=== PATIENT | female | born 1960 | race African-American/Black ===

== ENCOUNTER 2019-09-24 03:37 | Emergency (ER) | payer SELFPAY ==
[~2019-09-24] VITALS: Ht 165.1 cm; Wt 72.6 kg
[2019-09-24] MEDS ORDERED: TETANUS, DIPHTHERIA, PERTUSSIS VAC/PF 0.5ML (>7YR OLD) IM ONE (04:30)
[2019-09-24 08:17] VITALS: BP 122/75
== END 2019-09-24 08:22 | disposition home or self-care (01) ==
LOC: ER 03:37
DX: S00.83XA Contusion of other part of head, initial encounter (principal); Y08.89XA Assault by other specified means, initial encounter; Y93.89 Activity, other specified; Y92.89 Other specified places as the place of occurrence of the external cause; Y99.8 Other external cause status; Z98.890 Other specified postprocedural states; Z85.9 Personal history of malignant neoplasm, unspecified
CPT/HCPCS: 90471; 90715; 99284

== ENCOUNTER 2023-09-05 10:46 | Emergency (ER) | payer SELFPAY ==
[~2023-09-05] VITALS: Ht 160 cm; Wt 80.0 kg
[2023-09-05 10:55] VITALS: BP 175/93; PULSE 101; RESP 16; TEMP 98.6; O2SAT 100
== END 2023-09-05 13:17 | disposition left against medical advice (07) ==
LOC: ER 10:46
DX: R51.9 Headache, unspecified (principal); Z53.21 Procedure and treatment not carried out due to patient leaving prior to being seen by health care provider
CPT/HCPCS: 73120; 99281; Z7610; 99283

== ENCOUNTER 2023-12-24 00:40 | Inpatient (IN) | payer BC ==
[2023-12-24] VITALS (57 sets, daily range): BP systolic 87–164; BP diastolic 43–115; PULSE 77–135; RESP 11–34; TEMP 97.4–98.5
[~2023-12-24] VITALS: Ht 162.6 cm; Wt 86.2 kg
[2023-12-24] MEDS ORDERED: VANCOMYCIN 1000MG/250ML 250 ML IV SCH (01:15)
[2023-12-24] MEDS ORDERED: FENTANYL 2500MCG/250ML PMX 250 ML IV ONE ×2 (01:30→11:00)
[2023-12-24] MEDS ORDERED: FENTANYL CITRATE 2,500 MCG in SODIUM CHLORIDE 0.9% 200 ML IV PRN (01:30)
[2023-12-24 01:33] LABS: HEMATOCRIT. 53.6 % (36.0-48.0); MEAN CORPUSCULAR HEMOGLOBIN 28.9 pg (28.0-32.0); MEAN CORPUSCULAR HGB CONC 29.8 g/dL (31.0-37.0); MEAN CORPUSCULAR VOLUME 96.9 fL (81.0-99.0); MEAN PLATELET VOLUME 10.2 fl (7.4-10.4); PLATELET 360 x1000/uL (130-400); RED BLOOD CELL COUNT 5.54 mill/uL (4.2-5.4); RED CELL DISTRIBUTION WIDTH 15.2 % (11.6-14.6); WHITE BLOOD COUNT 20.2 x1000/uL (4.5-11.0)
[2023-12-24 01:35] LABS: DIFFERENTIAL COMMENT 1
[2023-12-24 01:42] LABS: CHLORIDE 102 mEq/L (98-107); POTASSIUM 3.7 mEq/L (3.5-5.1); SODIUM 142 mEq/L (136-145)
[2023-12-24 01:43] LABS: CARBON DIOXIDE 16 mEq/L (21-32)
[2023-12-24 01:48] LABS: CREATININE 1.3 mg/dL (0.6-1.0); GLUCOSE 183 mg/dL (70-105); UREA NITROGEN BLOOD 10 mg/dL (9-23)
[2023-12-24 01:50] LABS: ALANINE AMINOTRANSFERASE 72 IU/L (10-49); ALBUMIN 4.9 g/dL (3.2-4.8); ASPARTATE AMINOTRANSFERASE 70 IU/L (<34); BILIRUBIN TOTAL 0.3 mg/dL (0.1-1.0); PROTEIN TOTAL 8.9 g/dL (6.0-8.3); TROPONIN I HIGH SENSITIVITY 24 ng/L (3.0-34)
[2023-12-24 01:51] LABS: ATYPICAL LYMPHOCYTES 19; PLATELET ESTIMATE NORMAL
[2023-12-24 01:52] LABS: OVALOCYTES 1+; TEAR DROP CELLS 2+
[2023-12-24 01:53] LABS: GIANT PLATELETS FEW
[2023-12-24] MEDS: PROPOFOL 10MG/ML 100ML 100 ML IV STA (01:53)
[2023-12-24] MEDS: FENTANYL 2500MCG/250ML PMX 250 ML IV ONE (01:54)
[2023-12-24] MEDS: PIPERACILLIN/TAZO 3.375G/50ML 50 ML IV NR (02:26)
[2023-12-24 02:35] LABS: BG CARBOXYHEMOGLOBIN 0.3 % (0.5-1.5); BG FRACTION INSPIRED OXYGEN 100; BG HCO3 ACT 19.2 mmol/L (22.0-26.0); BG METHEMOGLOBIN 0.3 % (0.0-1.5); BG OXYHEMOGLOBIN 96.4 % (94.0-97.0); BG PCO2 50.6 mmHg (35.0-45.0); BG PH 7.198 (7.350-7.450); BG PO2 112.7 mmHg (75.0-100.0); BG SAMPLE SITE RIGHT RADIAL; BG TOTAL HEMOGLOBIN 15.1 g/dL (12.0-18.0); BG VENT MODE VENT - AC
[2023-12-24 02:44] LABS: LACTIC ACID 23.6 mmol/L (0.4-2.0)
[2023-12-24] MEDS: VANCOMYCIN 1G PREMIX 200 ML IV NR (02:53)
[2023-12-24] MEDS ORDERED: PIPERACILLIN/TAZO 3.375G/50ML 50 ML IV SCH (06:00)
[2023-12-24] MEDS ORDERED: DOCUSATE SODIUM 100MG CAPSULE PO PRN (06:00)
[2023-12-24] MEDS ORDERED: MAGNESIUM/ALUMINUM HYDROXIDE/SIMETHICONE 30ML UDC PO PRN (06:00)
[2023-12-24] MEDS ORDERED: PIPERACILLIN/TAZOBACTAM 3.375 G in DEXTROSE 5% WATER 50 ML IV SCH (06:00)
[2023-12-24] MEDS ORDERED: CLONIDINE 0.1MG TABLET PO PRN (06:00)
[2023-12-24] MEDS ORDERED: IPRATROPIUM/ALBUTEROL 0.5-3(2.5)MG/3ML NEB HHN PRN ×2 (06:00)
[2023-12-24] MEDS ORDERED: GUAIFENESIN 200MG/10ML SUGAR FREE UDC PO PRN (06:00)
[2023-12-24] MEDS ORDERED: PROPOFOL 10MG/ML 100ML 100 ML IV PRN (06:15)
[2023-12-24] MEDS ORDERED: DEXTROSE 50% WATER 50ML SYRINGE IV PRN (06:15)
[2023-12-24] MEDS: METHYLPREDNISOLONE SOD SUCC 125MG/2ML (ACT-O-VIAL) IV SCH (06:46)
[2023-12-24] MEDS: PIPERACILLIN/TAZO 3.375G/50ML IV SCH (06:46)
[2023-12-24] MEDS: DEXT 5%/0.9% NACL 1,000 ML IV SCH (07:00)
[2023-12-24] MEDS ORDERED: DOXYCYCLINE 100MG/100ML 100 ML IV SCH (07:00)
[2023-12-24 08:03] LABS: BG BASE EXCESS -0.7 mmol/L (-2.0-2.0); BG CARBOXYHEMOGLOBIN 0.1 % (0.5-1.5); BG DEOXYHEMOGLOBIN 0.9 % (0.0-5.0); BG FRACTION INSPIRED OXYGEN 100; BG HCO3 ACT 25.5 mmol/L (22.0-26.0); BG METHEMOGLOBIN 0.4 % (0.0-1.5); BG OXYGEN SATURATION 99.1 % (92.0-98.5); BG OXYHEMOGLOBIN 98.6 % (94.0-97.0); BG PCO2 47.4 mmHg (35.0-45.0); BG PH 7.348 (7.350-7.450); BG PO2 185.3 mmHg (75.0-100.0); BG SAMPLE SITE RIGHT RADIAL; BG TOTAL HEMOGLOBIN 15.2 g/dL (12.0-18.0); BG VENT MODE VENT - AC
[2023-12-24] MEDS: IPRATROPIUM/ALBUTEROL 0.5-3(2.5)MG/3ML NEB HHN SCH (08:05)
[2023-12-24] MEDS: ONDANSETRON HCL 4MG/2ML INJ IV NR (10:30)
[2023-12-24] MEDS: BLOOD SUGAR DIAGNOSTIC STRIP TEST SCH (10:46)
[2023-12-24] MEDS: INSULIN LISPRO 100 UNITS/ML SUBCUT SCH (10:50)
[2023-12-24] MEDS ORDERED: MIDAZOLAM HCL 100 MG in SODIUM CHLORIDE 0.9% 80 ML IV PRN (11:00)
[2023-12-24 11:34] LABS: INR 1.2; PARTIAL THROMBOPLASTIN TIME 25.9 sec (23.4-31.0); PROTHROMBIN TIME 12.7 sec (9.6-11.0)
[2023-12-24 11:51] LABS: CREATINE KINASE MB FRACTION 10.7 ng/mL (0.5-3.6)
[2023-12-24 11:52] LABS: LDL CHOLESTEROL 57 mg/dL (5-100); TRIGLYCERIDE 119 mg/dL (0-150)
[2023-12-24 11:53] LABS: CREATINE KINASE 521 IU/L (34-145); HDL CHOLESTEROL 52 mg/dL (>65)
[2023-12-24 11:54] LABS: CHOLESTEROL 126 mg/dL (<200); PHOSPHORUS 3.7 mg/dL (2.5-4.9); TROPONIN I HIGH SENSITIVITY 412 ng/L (3.0-34)
[2023-12-24 11:56] LABS: THYROID STIMULATING HORMONE 0.74 uIU/mL (0.55-4.78)
[2023-12-24 12:14] LABS: HEPATITIS B SURFACE ANTIGEN NEGATIVE (Negative)
[2023-12-24 12:29] LABS: BG BASE EXCESS -0.3 mmol/L (-2.0-2.0); BG CARBOXYHEMOGLOBIN 0.2 % (0.5-1.5); BG DEOXYHEMOGLOBIN 3.7 % (0.0-5.0); BG FRACTION INSPIRED OXYGEN 40; BG HCO3 ACT 24.8 mmol/L (22.0-26.0); BG METHEMOGLOBIN 0.3 % (0.0-1.5); BG OXYGEN SATURATION 96.3 % (92.0-98.5); BG OXYHEMOGLOBIN 95.8 % (94.0-97.0); BG PCO2 42.3 mmHg (35.0-45.0); BG PH 7.386 (7.350-7.450); BG PO2 87.7 mmHg (75.0-100.0); BG SAMPLE SITE LEFT RADIAL; BG TOTAL HEMOGLOBIN 14.6 g/dL (12.0-18.0); BG VENT MODE VENT - CPAP
[2023-12-24 12:34] LABS: HEPATITIS A AB IGM NEGATIVE (Negative)
[2023-12-24 12:35] LABS: HEPATITIS B CORE AB IGM NEGATIVE (Negative); HEPATITIS C AB REACTIVE (Pos) (Negative)
[2023-12-24] MEDS: NITROGLYCERIN OINT 1GM/INCH UDPKT TD SCH (14:00)
[2023-12-24] MEDS: ACETYLCYSTEINE 200MG/ML 20% VIAL 4ML INH SCH (14:00)
[2023-12-24] MEDS: DOXYCYCLINE 100MG/100ML 100 ML IV SCH (14:12)
[2023-12-24] MEDS: MAGNESIUM 2 G PREMIX 50 ML IV NR (14:13)
[2023-12-24] MEDS: PANTOPRAZOLE SODIUM 40 MG/VIAL IV SCH (14:13)
[2023-12-24] MEDS: MAGNESIUM OXIDE 400MG TABLET PO SCH (14:14)
[2023-12-24 15:12] LABS: CREATINE KINASE MB FRACTION 11.8 ng/mL (0.5-3.6)
[2023-12-24] MEDS ORDERED: IPRATROPIUM BROMIDE (0.02%) 0.5MG/2.5ML NEB HHN PRN (17:15)
[2023-12-24] MEDS: ENOXAPARIN 80MG/0.8ML SYR SUBCUT SCH (17:58)
[2023-12-24] MEDS: LIDOCAINE HCL/EPINEPHRINE 1%-EPI 1:100,000 20 ML VIAL INFIL NR (20:10)
[2023-12-24] MEDS: IPRATROPIUM BROMIDE (0.02%) 0.5MG/2.5ML NEB HHN SCH (20:29)
[2023-12-24] MEDS: AMLODIPINE 2.5MG TABLET PO SCH (21:00)
[2023-12-25] VITALS (60 sets, daily range): BP systolic 91–147; BP diastolic 43–87; PULSE 71–101; RESP 10–27; TEMP 96.3–98.7
[2023-12-25] MEDS: ACETAMINOPHEN 650MG/20.3ML UDC NG PRN (02:42)
[2023-12-25] MEDS ORDERED: VANCOMYCIN 1G PREMIX 200 ML IV SCH (04:00)
[2023-12-25] MEDS: VANCOMYCIN 1G PREMIX 200 ML IV SCH (06:06)
[2023-12-25] MEDS: PNEUMOCOCCAL 23-VAL P-SAC VAC 0.5 ML IM ONE (06:08)
[2023-12-25 06:48] LABS: CLARITY URINE CLEAR (CLEAR); COLOR URINE YELLOW (YELLOW); GLUCOSE URINE NEGATIVE (NEGATIVE); KETONES URINE NEGATIVE (NEGATIVE); LEUKOCYTE ESTERASE URINE NEGATIVE (NEGATIVE); NITRITE URINE NEGATIVE (NEGATIVE); OCCULT BLOOD URINE NEGATIVE (NEGATIVE); PROTEIN URINE NEGATIVE (NEGATIVE); SPECIFIC GRAVITY URINE 1.022 (1.005-1.030)
[2023-12-25 06:53] LABS: CHLORIDE 109 mEq/L (98-107); POTASSIUM 3.8 mEq/L (3.5-5.1); SODIUM 141 mEq/L (136-145)
[2023-12-25 07:00] LABS: CALCIUM 8.5 mg/dL (8.7-10.4)
[2023-12-25 07:01] LABS: CARBON DIOXIDE 24 mEq/L (21-32)
[2023-12-25 07:07] LABS: T4 FREE 0.87 ng/dL (0.89-1.76)
[2023-12-25 07:08] LABS: CREATININE 0.7 mg/dL (0.6-1.0); GLUCOSE 162 mg/dL (70-105); UREA NITROGEN BLOOD 10 mg/dL (9-23)
[2023-12-25 07:11] LABS: CREATININE URINE RANDOM 94.8 mg/dL
[2023-12-25 07:14] LABS: *AMPHETAMINES SCREEN URINE NEGATIVE (NEGATIVE); *BARBITURATES SCREEN URINE NEGATIVE (NEGATIVE); *BENZODIAZEPINES SCREEN URINE NEGATIVE (NEGATIVE); *COCAINE SCREEN URINE NEGATIVE (NEGATIVE); METHADONE URINE SCREEN NEGATIVE (NEGATIVE)
[2023-12-25 07:15] LABS: CANNABINOID URINE SCREEN NEGATIVE (NEGATIVE); ECSTASY MDMA SCREEN URINE NEGATIVE (NEGATIVE); OPIATES URINE SCREEN NEGATIVE (NEGATIVE); PHENCYCLIDINE URINE SCREEN NEGATIVE (NEGATIVE)
[2023-12-25 08:04] LABS: TROPONIN I HIGH SENSITIVITY 98 ng/L (3.0-34)
[2023-12-25 12:24] LABS: HEMATOCRIT. 34.1 % (36.0-48.0); HEMOGLOBIN. 11.3 g/dL (12.0-16.0); LYMPHOCYTES % 13.3 % (20.0-50.0); MEAN CORPUSCULAR HEMOGLOBIN 28.3 pg (28.0-32.0); MEAN CORPUSCULAR HGB CONC 33.1 g/dL (31.0-37.0); MEAN PLATELET VOLUME 8.7 fl (7.4-10.4); MONOCYTES % 3.6 % (2.0-8.0); NEUTROPHILS % 83.1 % (40.0-76.0); PLATELET 208 x1000/uL (130-400); RED BLOOD CELL COUNT 3.99 mill/uL (4.2-5.4); RED CELL DISTRIBUTION WIDTH 13.6 % (11.6-14.6); WHITE BLOOD COUNT 17.6 x1000/uL (4.5-11.0)
[2023-12-25 12:27] LABS: MEAN CORPUSCULAR VOLUME 85.6 fL (81.0-99.0)
[2023-12-26] VITALS (10 sets, daily range): BP systolic 138–151; BP diastolic 70–81; PULSE 72–96; RESP 12–22; TEMP 97.8–98.7; O2SAT 99
[2023-12-26 07:18] LABS: HEMATOCRIT. 34.7 % (36.0-48.0); HEMOGLOBIN. 11.4 g/dL (12.0-16.0); LYMPHOCYTES % 12.5 % (20.0-50.0); MEAN CORPUSCULAR HEMOGLOBIN 28.3 pg (28.0-32.0); MEAN CORPUSCULAR HGB CONC 32.9 g/dL (31.0-37.0); MEAN PLATELET VOLUME 9.5 fl (7.4-10.4); NEUTROPHILS % 83.5 % (40.0-76.0); PLATELET 212 x1000/uL (130-400); RED BLOOD CELL COUNT 4.03 mill/uL (4.2-5.4); RED CELL DISTRIBUTION WIDTH 13.7 % (11.6-14.6); WHITE BLOOD COUNT 18.2 x1000/uL (4.5-11.0)
[2023-12-26 07:19] LABS: CARBON DIOXIDE 25 mEq/L (21-32); CHLORIDE 108 mEq/L (98-107); SODIUM 139 mEq/L (136-145)
[2023-12-26 07:24] LABS: CREATININE 0.8 mg/dL (0.6-1.0)
[2023-12-26 07:25] LABS: GLUCOSE 147 mg/dL (70-105); UREA NITROGEN BLOOD 13 mg/dL (9-23)
[2023-12-26] MEDS: VANCOMYCIN 1G PREMIX 200 ML IV SCH (13:15)
[2023-12-26 15:06] LABS: A/G RATIO 0.9 (0.7-1.7); ALBUMIN 3.1 g/dL (2.9-4.4); ALPHA-1-GLOBULIN 0.3 g/dL (0.0-0.4); ALPHA-2-GLOBULIN 0.8 g/dL (0.4-1.0); GAMMA GLOBULINS 1.6 g/dL (0.4-1.8); GLOBULIN TOTAL 3.6 g/dL (2.2-3.9); M-SPIKE Not Observed g/dL (Not Observed); TOTAL PROTEIN SERUM 6.7 g/dL (6.0-8.5)
[2023-12-26] MEDS: METHYLPREDNISOLONE SOD SUCC 125MG/2ML (ACT-O-VIAL) IV SCH (18:29)
[2023-12-26] MEDS: VANCOMYCIN 750MG PREMIX 150 ML IV SCH (23:02)
[2023-12-27] VITALS (9 sets, daily range): BP systolic 132–159; BP diastolic 72–115; PULSE 69–85; RESP 14–20; TEMP 97.8–98; O2SAT 99
[2023-12-27 07:34] LABS: HEMATOCRIT. 31.4 % (36.0-48.0); HEMOGLOBIN. 10.6 g/dL (12.0-16.0); LYMPHOCYTES % 15.4 % (20.0-50.0); MEAN CORPUSCULAR HEMOGLOBIN 28.5 pg (28.0-32.0); MEAN CORPUSCULAR HGB CONC 33.6 g/dL (31.0-37.0); MEAN CORPUSCULAR VOLUME 84.9 fL (81.0-99.0); MEAN PLATELET VOLUME 9.5 fl (7.4-10.4); MONOCYTES % 4.9 % (2.0-8.0); NEUTROPHILS % 79.7 % (40.0-76.0); PLATELET 191 x1000/uL (130-400); RED CELL DISTRIBUTION WIDTH 13.5 % (11.6-14.6); WHITE BLOOD COUNT 12.6 x1000/uL (4.5-11.0)
[2023-12-27 07:51] LABS: CALCIUM 8.7 mg/dL (8.7-10.4); CHLORIDE 107 mEq/L (98-107); POTASSIUM 3.6 mEq/L (3.5-5.1); SODIUM 140 mEq/L (136-145)
[2023-12-27 07:52] LABS: CARBON DIOXIDE 26 mEq/L (21-32)
[2023-12-27 07:57] LABS: CREATININE 0.8 mg/dL (0.6-1.0); GLUCOSE 136 mg/dL (70-105); UREA NITROGEN BLOOD 15 mg/dL (9-23)
[2023-12-27] MEDS: FAMOTIDINE 20MG/2ML VIAL IV SCH (08:57)
[2023-12-27] MEDS: FUROSEMIDE 40MG TABLET PO SCH (09:19)
[2023-12-27] MEDS: POTASSIUM CHLORIDE 20MEQ TABLET SR PO SCH (09:19)
[2023-12-27] MEDS: CARVEDILOL 3.125 MG TABLET PO SCH (09:27)
[2023-12-27] MEDS ORDERED: GUAIFENESIN 600MG ER TABLET PO PRN (10:15)
[2023-12-27] MEDS ORDERED: VANCOMYCIN 1G PREMIX 200 ML IV SCH (18:00)
[2023-12-27] MEDS ORDERED: VANCOMYCIN 1GM PMX (XELLIA) 200 ML IV SCH (18:00)
== END 2023-12-27 18:02 | disposition home or self-care (01) | DRG 871 ==
LOC: ER 00:43 → CVICU 04:21 → 3WST 12-25 23:03
PROVIDERS: ADMIT Hospitalist; ATTEND Hospitalist
PROC: 5A1935Z Respiratory Ventilation, Less than 24 Consecutive Hours (ICD-10-PCS; principal; 2023-12-24)
PROC: 0BH17EZ Insertion of Endotracheal Airway into Trachea, Via Natural or Artificial Opening (ICD-10-PCS; 2023-12-24)
DX: A41.9 Sepsis, unspecified organism (principal); G92.8 Other toxic encephalopathy; J69.0 Pneumonitis due to inhalation of food and vomit; J96.01 Acute respiratory failure with hypoxia; J96.02 Acute respiratory failure with hypercapnia; R65.21 Severe sepsis with septic shock; I21.A1 Myocardial infarction type 2; N17.9 Acute kidney failure, unspecified; I42.9 Cardiomyopathy, unspecified; J42 Unspecified chronic bronchitis; B18.2 Chronic viral hepatitis C; N18.9 Chronic kidney disease, unspecified; I12.9 Hypertensive chronic kidney disease with stage 1 through stage 4 chronic kidney disease, or unspecified chronic kidney disease; I34.1 Nonrheumatic mitral (valve) prolapse; E83.52 Hypercalcemia; B96.89 Other specified bacterial agents as the cause of diseases classified elsewhere; E87.70 Fluid overload, unspecified; R73.9 Hyperglycemia, unspecified; K59.00 Constipation, unspecified; I44.7 Left bundle-branch block, unspecified; Z79.899 Other long term (current) drug therapy; Z51.5 Encounter for palliative care; Z85.3 Personal history of malignant neoplasm of breast; Z90.13 Acquired absence of bilateral breasts and nipples
CPT/HCPCS: 36415; 36600; 71045; 80048; 80053; 80061; 80202; 80305; 81003; 82340; 82375; 82550; 82553; 82570; 82805; 82962; 83036; 83605; 83735; 83880; 84100; 84145; 84155; 84156; 84165; 84439; 84443; 84484; 85025; 85379; 86705; 86709; 87070; 87077; 87186; 87340; 90732; 93005; 93306; 93970; 94003; 94640; 99291; C1893; C9113; J1650; J1815; J2405; J2543; J2704; J2930; J3010; J3370; J3475; J3490; J7608

== ENCOUNTER 2024-03-02 02:56 | Inpatient (IN) | payer BC, OTHER ==
[~2024-03-02] VITALS: Ht 165.1 cm; Wt 81.6 kg
[2024-03-02] VITALS (67 sets, daily range): BP systolic 74–103; BP diastolic 49–76; PULSE 93–126; RESP 17–35; TEMP 98.7–102
[2024-03-02] MEDS: AZITHROMYCIN 500MG/250ML 250 ML IV ONE (03:15)
[2024-03-02] MEDS: CEFTRIAXONE 1GM/50ML 50 ML IV ONE (03:15)
[2024-03-02] MEDS: SODIUM CHLORIDE 0.9% 1000ML BAG (SEPSIS BOLUS) IV ONE (03:15)
[2024-03-02] MEDS: CEFTRIAXONE 1GM/50ML 50 ML IV NR (05:00)
[2024-03-02 05:17] LABS: CHLORIDE 110 mEq/L (98-107)
[2024-03-02 05:18] LABS: CARBON DIOXIDE 25 mEq/L (21-32); SODIUM 142 mEq/L (136-145)
[2024-03-02 05:19] LABS: CALCIUM 8.8 mg/dL (8.7-10.4)
[2024-03-02 05:21] LABS: BASOPHILS % 0.3 % (0.0-2.0); EOSINOPHILS % 0.4 % (0.0-5.0); HEMATOCRIT. 43.7 % (36.0-48.0); LYMPHOCYTES % 62.3 % (20.0-50.0); MEAN CORPUSCULAR HEMOGLOBIN 27.9 pg (28.0-32.0); MEAN CORPUSCULAR HGB CONC 32.1 g/dL (31.0-37.0); MEAN CORPUSCULAR VOLUME 86.9 fL (81.0-99.0); MEAN PLATELET VOLUME 10.6 fl (7.4-10.4); MONOCYTES % 7.7 % (2.0-8.0); NEUTROPHILS % 29.3 % (40.0-76.0); PLATELET 396 x1000/uL (130-400); RED BLOOD CELL COUNT 5.03 mill/uL (4.2-5.4); RED CELL DISTRIBUTION WIDTH 14.6 % (11.6-14.6); WHITE BLOOD COUNT 13.6 x1000/uL (4.5-11.0)
[2024-03-02 05:23] LABS: CREATININE 0.7 mg/dL (0.6-1.0); GLUCOSE 132 mg/dL (70-105)
[2024-03-02 05:24] LABS: UREA NITROGEN BLOOD 11 mg/dL (9-23)
[2024-03-02 05:25] LABS: ALANINE AMINOTRANSFERASE 92 IU/L (10-49); ASPARTATE AMINOTRANSFERASE 102 IU/L (<34)
[2024-03-02 05:26] LABS: BILIRUBIN DIRECT 0.2 mg/dL (<=3.0); BILIRUBIN TOTAL 0.4 mg/dL (0.1-1.0); PROTEIN TOTAL 6.9 g/dL (6.0-8.3)
[2024-03-02 05:28] LABS: TROPONIN I HIGH SENSITIVITY 89 ng/L (3.0-34)
[2024-03-02] MEDS ORDERED: DOCUSATE SODIUM 100MG CAPSULE PO PRN (05:30)
[2024-03-02] MEDS ORDERED: GUAIFENESIN 200MG/10ML SUGAR FREE UDC PO PRN (05:30)
[2024-03-02] MEDS ORDERED: DEXTROSE 50% WATER 50ML SYRINGE IV PRN ×2 (05:30→16:00)
[2024-03-02] MEDS ORDERED: ONDANSETRON HCL 4MG/2ML INJ IV PRN (05:30)
[2024-03-02] MEDS ORDERED: ACETAMINOPHEN 325MG TABLET PO PRN (05:30)
[2024-03-02] MEDS ORDERED: IPRATROPIUM/ALBUTEROL 0.5-3(2.5)MG/3ML NEB HHN PRN (05:30)
[2024-03-02 05:41] LABS: INR 1.1; PROTHROMBIN TIME 12.1 sec (9.6-11.0)
[2024-03-02] MEDS ORDERED: ETOMIDATE 2MG/ML 10ML VIAL IV ONE (06:00)
[2024-03-02] MEDS: AZITHROMYCIN 500MG/250ML 250 ML IV NR (06:30)
[2024-03-02 06:59] LABS: ALBUMIN 4.2 g/dL (3.2-4.8); TRIGLYCERIDE 85 mg/dL (0-150)
[2024-03-02 07:00] LABS: LDL CHOLESTEROL 60 mg/dL (5-100)
[2024-03-02 07:01] LABS: CHOLESTEROL 129 mg/dL (<200); CREATINE KINASE 108 IU/L (34-145); HDL CHOLESTEROL 53 mg/dL (>65); T4 FREE 1.02 ng/dL (0.89-1.76)
[2024-03-02 07:02] LABS: THYROID STIMULATING HORMONE 2.41 uIU/mL (0.55-4.78)
[2024-03-02 07:08] LABS: TROPONIN I HIGH SENSITIVITY 132 ng/L (3.0-34)
[2024-03-02 07:20] LABS: HEPATITIS B SURFACE ANTIGEN NEGATIVE (Negative)
[2024-03-02 07:33] LABS: ETHANOL BLOOD < 10 mg/dL (<10)
[2024-03-02 07:39] LABS: HEPATITIS A AB IGM NEGATIVE (Negative)
[2024-03-02 07:40] LABS: HEPATITIS B CORE AB IGM NEGATIVE (Negative)
[2024-03-02 07:41] LABS: HEPATITIS C AB REACTIVE (Pos) (Negative)
[2024-03-02 08:28] LABS: HEMOGLOBIN 14.1 g/dL (12.0-16.0); MEAN CORPUSCULAR HEMOGLOBIN 27.9 pg (28.0-32.0); MEAN CORPUSCULAR HGB CONC 29.9 g/dL (31.0-37.0); MEAN CORPUSCULAR VOLUME 93.1 fL (81.0-99.0); PLATELET 358 x1000/uL (130-400); RED BLOOD CELL COUNT 5.05 mill/uL (4.2-5.4); RED CELL DISTRIBUTION WIDTH 14.7 % (11.6-14.6); WHITE BLOOD COUNT 17.6 x1000/uL (4.5-11.0)
[2024-03-02 08:34] LABS: CHLORIDE 108 mEq/L (98-107); POTASSIUM 3.9 mEq/L (3.5-5.1); SODIUM 143 mEq/L (136-145)
[2024-03-02 08:35] LABS: CALCIUM 10.1 mg/dL (8.7-10.4); CARBON DIOXIDE 15 mEq/L (21-32)
[2024-03-02 08:40] LABS: CREATININE 1.1 mg/dL (0.6-1.0); GLUCOSE 397 mg/dL (70-105); UREA NITROGEN BLOOD 9 mg/dL (9-23)
[2024-03-02 08:41] LABS: CREATINE KINASE MB FRACTION 3.3 ng/mL (0.5-3.6)
[2024-03-02 08:42] LABS: ALANINE AMINOTRANSFERASE 91 IU/L (10-49); ALBUMIN 3.5 g/dL (3.2-4.8); ASPARTATE AMINOTRANSFERASE 116 IU/L (<34); CREATINE KINASE 177 IU/L (34-145)
[2024-03-02 08:43] LABS: BILIRUBIN TOTAL 0.3 mg/dL (0.1-1.0); PROTEIN TOTAL 6.5 g/dL (6.0-8.3)
[2024-03-02] MEDS ORDERED: LORAZEPAM 2MG/ML INJ ONE (08:49)
[2024-03-02 08:53] LABS: TROPONIN I HIGH SENSITIVITY 241 ng/L (3.0-34)
[2024-03-02] MEDS ORDERED: CALCIUM CHLORIDE 1GM/10ML SYR IV ONE (09:00)
[2024-03-02] MEDS: BLOOD SUGAR DIAGNOSTIC STRIP TEST SCH ×2 (09:00→23:32)
[2024-03-02] MEDS ORDERED: MIDAZOLAM 100MG/100ML PMX 100 ML IV PRN ×2 (09:00→09:15)
[2024-03-02] MEDS ORDERED: MIDAZOLAM HCL 100 MG in SODIUM CHLORIDE 0.9% 80 ML IV PRN (09:30)
[2024-03-02] MEDS: LORAZEPAM 2MG/ML INJ IV NR (09:40)
[2024-03-02] MEDS: PROPOFOL 10MG/ML 100ML 100 ML IV ONE (10:43)
[2024-03-02] MEDS: NOREPINEPHRINE 8 MG in DEXT 5% WATER 242 ML IV STA (10:43)
[2024-03-02] MEDS: LEVETIRACETAM 500MG in NACL 100ML PREMIX IV SCH (10:44)
[2024-03-02 11:02] LABS: BG BASE EXCESS -3.5 mmol/L (-2.0-2.0); BG CARBOXYHEMOGLOBIN 0.4 % (0.5-1.5); BG DEOXYHEMOGLOBIN 0.9 % (0.0-5.0); BG FRACTION INSPIRED OXYGEN 100; BG HCO3 ACT 26.4 mmol/L (22.0-26.0); BG METHEMOGLOBIN 0.1 % (0.0-1.5); BG OXYGEN SATURATION 99.1 % (92.0-98.5); BG OXYHEMOGLOBIN 98.6 % (94.0-97.0); BG PCO2 70.8 mmHg (35.0-45.0); BG PO2 179.7 mmHg (75.0-100.0); BG SAMPLE SITE RIGHT RADIAL; BG VENT MODE VENT - AC
[2024-03-02 11:17] LABS: CLARITY URINE CLOUDY (CLEAR); COLOR URINE YELLOW (YELLOW); GLUCOSE URINE 3+ (NEGATIVE); KETONES URINE NEGATIVE (NEGATIVE); LEUKOCYTE ESTERASE URINE NEGATIVE (NEGATIVE); NITRITE URINE NEGATIVE (NEGATIVE); OCCULT BLOOD URINE 2+ (NEGATIVE); PH URINE 5.5 (4.5-8.0); PROTEIN URINE 3+ (NEGATIVE)
[2024-03-02] MEDS: PANTOPRAZOLE SODIUM 40 MG/VIAL IV SCH (11:35)
[2024-03-02] MEDS: INSULIN LISPRO 100 UNITS/ML SUBCUT SCH ×2 (11:35→23:32)
[2024-03-02] MEDS: FUROSEMIDE 40MG/4ML VIAL IVP SCH (11:36)
[2024-03-02] MEDS: ASPIRIN 81MG TABLET PO SCH (11:36)
[2024-03-02] MEDS: ENOXAPARIN 40MG/0.4ML SYR SUBCUT SCH (11:37)
[2024-03-02 11:53] LABS: *AMPHETAMINES SCREEN URINE NEGATIVE (NEGATIVE); *BARBITURATES SCREEN URINE NEGATIVE (NEGATIVE); *BENZODIAZEPINES SCREEN URINE PRESUMPTIVE POSITIVE (NEGATIVE); *COCAINE SCREEN URINE NEGATIVE (NEGATIVE); METHADONE URINE SCREEN NEGATIVE (NEGATIVE)
[2024-03-02 11:54] LABS: CANNABINOID URINE SCREEN NEGATIVE (NEGATIVE); ECSTASY MDMA SCREEN URINE NEGATIVE (NEGATIVE); OPIATES URINE SCREEN NEGATIVE (NEGATIVE); PHENCYCLIDINE URINE SCREEN NEGATIVE (NEGATIVE)
[2024-03-02 11:59] LABS: COARSE GRANULAR CASTS URINE 0-5 /lpf; FINE GRANULAR CASTS URINE 0-5 /lpf; HYALINE CASTS URINE 0-5 /lpf; SQUAMOUS EPITHELIAL CELL URINE FEW /lpf (RARE/1+)
[2024-03-02 12:00] LABS: BACTERIA URINE 3+; RBC URINE 0-2 /hpf (0-2)
[2024-03-02] MEDS: IPRATROPIUM/ALBUTEROL 0.5-3(2.5)MG/3ML NEB HHN SCH (12:00)
[2024-03-02] MEDS: LEVETIRACETAM 1,000MG in NACL 100ML PREMIX IV SCH (12:53)
[2024-03-02] MEDS ORDERED: PROPOFOL 10MG/ML 100ML 100 ML IV PRN (13:00)
[2024-03-02 13:26] LABS: T4 FREE 0.93 ng/dL (0.89-1.76)
[2024-03-02] MEDS: PROPOFOL 10MG/ML 100ML 100 ML IV PRN (13:41)
[2024-03-02] MEDS: PIPERACILLIN/TAZO 3.375G/50ML 50 ML IV SCH (14:52)
[2024-03-02] MEDS: MIDAZOLAM 100MG/100ML PMX 100 ML IV PRN (14:53)
[2024-03-02] MEDS ORDERED: BLOOD SUGAR DIAGNOSTIC STRIP TEST SCH (16:00)
[2024-03-02] MEDS ORDERED: LORAZEPAM 2MG/ML INJ IV PRN (16:30)
[2024-03-02] MEDS ORDERED: INSULIN LISPRO 100 UNITS/ML SUBCUT SCH (17:00)
[2024-03-02] MEDS ORDERED: VASOPRESSIN 20 UNIT in SODIUM CHLORIDE 0.9% 99 ML IV PRN (17:00)
[2024-03-02] MEDS: ENOXAPARIN 100MG/ML SYR SUBCUT SCH (17:28)
[2024-03-02 18:26] LABS: CREATINE KINASE 786 IU/L (34-145)
[2024-03-02 18:51] LABS: TROPONIN I HIGH SENSITIVITY 1902 ng/L (3.0-34)
[2024-03-02] MEDS: ACETAMINOPHEN 650MG/20.3ML UDC NG PRN (20:17)
[2024-03-02] MEDS: LEVETIRACETAM 1,500 MG in SODIUM CHLORIDE 0.9% 100 ML IV SCH (20:17)
[2024-03-02] MEDS: PHENYLEPHRINE 50MG/250ML PMX 250 ML IV PRN (20:28)
[2024-03-02] MEDS ORDERED: LEVETIRACETAM 1000MG PREMIX 100 ML IV SCH (21:00)
[2024-03-02 21:13] LABS: CREATINE KINASE MB FRACTION 10.7 ng/mL (0.5-3.6)
[2024-03-03] VITALS (107 sets, daily range): BP systolic 77–135; BP diastolic 38–74; PULSE 82–122; RESP 16–20; TEMP 98.8–101.7; O2SAT 100
[2024-03-03 00:37] LABS: CREATINE KINASE MB FRACTION 6.8 ng/mL (0.5-3.6)
[2024-03-03 05:23] LABS: BASOPHILS % 0.1 % (0.0-2.0); EOSINOPHILS % 0.1 % (0.0-5.0); HEMATOCRIT. 43.1 % (36.0-48.0); HEMOGLOBIN. 13.4 g/dL (12.0-16.0); LYMPHOCYTES % 19.9 % (20.0-50.0); MEAN CORPUSCULAR HEMOGLOBIN 27.4 pg (28.0-32.0); MEAN CORPUSCULAR VOLUME 88.3 fL (81.0-99.0); MEAN PLATELET VOLUME 9.3 fl (7.4-10.4); MONOCYTES % 6.6 % (2.0-8.0); NEUTROPHILS % 73.3 % (40.0-76.0); PLATELET 370 x1000/uL (130-400); RED BLOOD CELL COUNT 4.88 mill/uL (4.2-5.4); RED CELL DISTRIBUTION WIDTH 14.6 % (11.6-14.6)
[2024-03-03 05:25] LABS: CHLORIDE 109 mEq/L (98-107); POTASSIUM 4.3 mEq/L (3.5-5.1); SODIUM 144 mEq/L (136-145)
[2024-03-03 05:26] LABS: CARBON DIOXIDE 23 mEq/L (21-32)
[2024-03-03 05:27] LABS: CALCIUM 9.2 mg/dL (8.7-10.4)
[2024-03-03 05:32] LABS: GLUCOSE 120 mg/dL (70-105)
[2024-03-03 05:33] LABS: ALANINE AMINOTRANSFERASE 249 IU/L (10-49); ALBUMIN 3.6 g/dL (3.2-4.8); ASPARTATE AMINOTRANSFERASE 402 IU/L (<34); TRIGLYCERIDE 128 mg/dL (0-150); UREA NITROGEN BLOOD 18 mg/dL (9-23)
[2024-03-03 05:34] LABS: PHOSPHORUS 2.5 mg/dL (2.5-4.9)
[2024-03-03 05:35] LABS: BILIRUBIN TOTAL 0.7 mg/dL (0.1-1.0); PROTEIN TOTAL 6.5 g/dL (6.0-8.3)
[2024-03-03 05:44] LABS: CREATININE 1.8 mg/dL (0.6-1.0)
[2024-03-03] MEDS ORDERED: LIDOCAINE HCL 1% 10 MG/ML 10ML VIAL ONE (07:19)
[2024-03-03 09:12] LABS: BG BASE EXCESS -2.8 mmol/L (-2.0-2.0); BG CARBOXYHEMOGLOBIN 0.7 % (0.5-1.5); BG DEOXYHEMOGLOBIN 0.8 % (0.0-5.0); BG FRACTION INSPIRED OXYGEN 50; BG HCO3 ACT 20.8 mmol/L (22.0-26.0); BG METHEMOGLOBIN 0.3 % (0.0-1.5); BG OXYGEN SATURATION 99.2 % (92.0-98.5); BG OXYHEMOGLOBIN 98.2 % (94.0-97.0); BG PCO2 32.5 mmHg (35.0-45.0); BG PH 7.423 (7.350-7.450); BG PO2 143.6 mmHg (75.0-100.0); BG SAMPLE SITE RIGHT RADIAL; BG TOTAL HEMOGLOBIN 13.5 g/dL (12.0-18.0); BG VENT MODE VENT - AC
[2024-03-03] MEDS: VASOPRESSIN 20 UNIT in SODIUM CHLORIDE 0.9% 99 ML IV PRN (10:06)
[2024-03-03] MEDS: DOXYCYCLINE 100MG/100ML 100 ML IV SCH (17:13)
[2024-03-03] MEDS: ENOXAPARIN 80MG/0.8ML SYR SUBCUT SCH (17:14)
[2024-03-04] VITALS (99 sets, daily range): BP systolic 61–173; BP diastolic 40–92; PULSE 65–140; RESP 13–31; TEMP 98.5–102
[2024-03-04 05:50] LABS: HEMATOCRIT 35.1 % (36.0-48.0); HEMOGLOBIN 11.3 g/dL (12.0-16.0); MEAN CORPUSCULAR HGB CONC 32.2 g/dL (31.0-37.0); MEAN CORPUSCULAR VOLUME 86.8 fL (81.0-99.0); PLATELET 234 x1000/uL (130-400); RED BLOOD CELL COUNT 4.04 mill/uL (4.2-5.4); RED CELL DISTRIBUTION WIDTH 14.1 % (11.6-14.6); WHITE BLOOD COUNT 9.4 x1000/uL (4.5-11.0)
[2024-03-04 05:58] LABS: CARBON DIOXIDE 25 mEq/L (21-32); CHLORIDE 111 mEq/L (98-107); POTASSIUM 3.6 mEq/L (3.5-5.1); SODIUM 146 mEq/L (136-145)
[2024-03-04 05:59] LABS: CALCIUM 8.5 mg/dL (8.7-10.4)
[2024-03-04 06:03] LABS: CREATININE 2.1 mg/dL (0.6-1.0); GLUCOSE 159 mg/dL (70-105)
[2024-03-04 06:04] LABS: UREA NITROGEN BLOOD 34 mg/dL (9-23)
[2024-03-04 06:05] LABS: ALBUMIN 3.3 g/dL (3.2-4.8)
[2024-03-04 06:06] LABS: ALANINE AMINOTRANSFERASE 142 IU/L (10-49); ASPARTATE AMINOTRANSFERASE 216 IU/L (<34); BILIRUBIN TOTAL 0.7 mg/dL (0.1-1.0); PROTEIN TOTAL 5.9 g/dL (6.0-8.3)
[2024-03-04] MEDS: CARVEDILOL 3.125 MG TABLET PO SCH (08:52)
[2024-03-04] MEDS: CLONIDINE 0.1MG TABLET PO PRN (09:27)
[2024-03-04] MEDS: SODIUM CHLORIDE 0.9% 1,000 ML IV ONE (11:57)
[2024-03-04] MEDS: PHENYLEPHRINE 100 MG in DEXT 5% WATER 240 ML IV PRN (16:09)
[2024-03-05] VITALS (103 sets, daily range): BP systolic 73–144; BP diastolic 52–90; PULSE 57–71; RESP 12–18; TEMP 96–98.9
[2024-03-05] MEDS: ENOXAPARIN 80MG/0.8ML SYR SUBCUT SCH ×2 (05:36→17:12)
[2024-03-05 05:48] LABS: POTASSIUM 3.3 mEq/L (3.5-5.1)
[2024-03-05 05:49] LABS: CALCIUM 8.8 mg/dL (8.7-10.4)
[2024-03-05 05:53] LABS: HEMATOCRIT 30.8 % (36.0-48.0); MEAN CORPUSCULAR HEMOGLOBIN 28.2 pg (28.0-32.0); MEAN CORPUSCULAR HGB CONC 32.5 g/dL (31.0-37.0); MEAN CORPUSCULAR VOLUME 86.7 fL (81.0-99.0); PLATELET 225 x1000/uL (130-400); RED BLOOD CELL COUNT 3.55 mill/uL (4.2-5.4); RED CELL DISTRIBUTION WIDTH 13.9 % (11.6-14.6); WHITE BLOOD COUNT 7.8 x1000/uL (4.5-11.0)
[2024-03-05 05:54] LABS: CREATININE 1.3 mg/dL (0.6-1.0)
[2024-03-05] MEDS ORDERED: POTASSIUM CHLORIDE 20MEQ TABLET SR PO SCH (08:45)
[2024-03-05] MEDS: POTASSIUM CHLORIDE 20MEQ/PACKET NG SCH (09:11)
[2024-03-05 09:55] LABS: BG BASE EXCESS 0.2 mmol/L (-2.0-2.0); BG CARBOXYHEMOGLOBIN 0.3 % (0.5-1.5); BG DEOXYHEMOGLOBIN 1.5 % (0.0-5.0); BG FRACTION INSPIRED OXYGEN 30; BG HCO3 ACT 23.4 mmol/L (22.0-26.0); BG METHEMOGLOBIN 0.3 % (0.0-1.5); BG OXYGEN SATURATION 98.5 % (92.0-98.5); BG OXYHEMOGLOBIN 97.9 % (94.0-97.0); BG PCO2 33.1 mmHg (35.0-45.0); BG PH 7.468 (7.350-7.450); BG PO2 116.8 mmHg (75.0-100.0); BG SAMPLE SITE RIGHT RADIAL; BG TOTAL HEMOGLOBIN 11.2 g/dL (12.0-18.0); BG TOTAL RESPIRATORY RATE 16 b/min; BG VENT MODE VENT - AC
[2024-03-06] VITALS (99 sets, daily range): BP systolic 73–122; BP diastolic 48–76; PULSE 55–75; RESP 13–23; TEMP 97–98
[2024-03-06 05:09] LABS: HEMATOCRIT 32.4 % (36.0-48.0); HEMOGLOBIN 10.4 g/dL (12.0-16.0); MEAN CORPUSCULAR HEMOGLOBIN 27.8 pg (28.0-32.0); MEAN CORPUSCULAR HGB CONC 32.2 g/dL (31.0-37.0); MEAN CORPUSCULAR VOLUME 86.2 fL (81.0-99.0); PLATELET 197 x1000/uL (130-400); RED BLOOD CELL COUNT 3.76 mill/uL (4.2-5.4); WHITE BLOOD COUNT 6.5 x1000/uL (4.5-11.0)
[2024-03-06 05:19] LABS: CARBON DIOXIDE 25 mEq/L (21-32); CHLORIDE 120 mEq/L (98-107); POTASSIUM 2.9 mEq/L (3.5-5.1); SODIUM 152 mEq/L (136-145)
[2024-03-06 05:20] LABS: CALCIUM 9.3 mg/dL (8.7-10.4)
[2024-03-06 05:25] LABS: CREATININE 0.9 mg/dL (0.6-1.0); GLUCOSE 204 mg/dL (70-105); UREA NITROGEN BLOOD 24 mg/dL (9-23)
[2024-03-06] MEDS: POTASSIUM CHLORIDE 20MEQ/PACKET NG NR (09:16)
[2024-03-06] MEDS: MAGNESIUM 2 G PREMIX 50 ML IV SCH (11:30)
[2024-03-06 17:03] LABS: POTASSIUM 2.8 mEq/L (3.5-5.1)
[2024-03-06] MEDS ORDERED: POTASSIUM CHLORIDE 40 MEQ in DEXT 5% WATER 230 ML IV ONE (17:30)
[2024-03-06] MEDS: KCL 20MEQ/100ML X 2 FOR TOTAL KCL 40MEQ/200ML IV SCH (17:41)
[2024-03-07] VITALS (102 sets, daily range): BP systolic 57–160; BP diastolic 32–112; PULSE 69–100; RESP 14–23; TEMP 97–98.2
[2024-03-07 10:20] LABS: CARBON DIOXIDE 26 mEq/L (21-32); CHLORIDE 121 mEq/L (98-107); POTASSIUM 3.5 mEq/L (3.5-5.1); SODIUM 155 mEq/L (136-145)
[2024-03-07 10:21] LABS: CALCIUM 9.3 mg/dL (8.7-10.4)
[2024-03-07 10:26] LABS: CREATININE 1.2 mg/dL (0.6-1.0); GLUCOSE 141 mg/dL (70-105); UREA NITROGEN BLOOD 26 mg/dL (9-23)
[2024-03-07] MEDS ORDERED: DEXTROSE 50% WATER 50ML SYRINGE IV PRN (16:00)
[2024-03-07] MEDS: INSULIN LISPRO 100 UNITS/ML SUBCUT SCH (17:00)
[2024-03-08] VITALS (94 sets, daily range): BP systolic 93–151; BP diastolic 47–72; PULSE 69–96; RESP 11–47; TEMP 97.5–98.2
[2024-03-08 05:30] LABS: HEMATOCRIT 27.6 % (36.0-48.0); HEMOGLOBIN 8.6 g/dL (12.0-16.0); MEAN CORPUSCULAR HEMOGLOBIN 27.8 pg (28.0-32.0); MEAN CORPUSCULAR HGB CONC 31.4 g/dL (31.0-37.0); MEAN CORPUSCULAR VOLUME 88.6 fL (81.0-99.0); PLATELET 243 x1000/uL (130-400); RED BLOOD CELL COUNT 3.11 mill/uL (4.2-5.4); RED CELL DISTRIBUTION WIDTH 14.4 % (11.6-14.6); WHITE BLOOD COUNT 12.5 x1000/uL (4.5-11.0)
[2024-03-08 05:38] LABS: CARBON DIOXIDE 26 mEq/L (21-32); CHLORIDE 118 mEq/L (98-107); POTASSIUM 3.9 mEq/L (3.5-5.1); SODIUM 153 mEq/L (136-145)
[2024-03-08 05:39] LABS: CALCIUM 8.7 mg/dL (8.7-10.4)
[2024-03-08 05:44] LABS: GLUCOSE 282 mg/dL (70-105); UREA NITROGEN BLOOD 17 mg/dL (9-23)
[2024-03-08] MEDS ORDERED: ACETAMINOPHEN 650MG/20.3ML UDC NG PRN (08:15)
[2024-03-09] VITALS (63 sets, daily range): BP systolic 92–124; BP diastolic 53–81; PULSE 47–78; RESP 14–16; TEMP 96.5–97.8
[2024-03-09] MEDS ORDERED: ENOXAPARIN 40MG/0.4ML SYR SUBCUT SCH (09:00)
== END 2024-03-09 16:36 | DRG 870 ==
LOC: ER 02:56 → MICUSO 05:00 → EDBEDREQTM 05:06 → EDBEDREQ 05:06 → EDBEDREQSVC 08:05 → MICUNO 03-08 11:34
PROVIDERS: ADMIT Internal Medicine; ATTEND Internal Medicine
PROC: 5A1955Z Respiratory Ventilation, Greater than 96 Consecutive Hours (ICD-10-PCS; principal; 2024-03-02)
PROC: 0BH17EZ Insertion of Endotracheal Airway into Trachea, Via Natural or Artificial Opening (ICD-10-PCS; 2024-03-02)
PROC: 5A12012 Performance of Cardiac Output, Single, Manual (ICD-10-PCS; 2024-03-02)
PROC: 06HY33Z Insertion of Infusion Device into Lower Vein, Percutaneous Approach (ICD-10-PCS; 2024-03-02)
PROC: 4A10X4Z Monitoring of Central Nervous Electrical Activity, External Approach (ICD-10-PCS; 2024-03-03)
PROC: 05HY33Z Insertion of Infusion Device into Upper Vein, Percutaneous Approach (ICD-10-PCS; 2024-03-03)
PROC: B54MZZA Ultrasonography of Right Upper Extremity Veins, Guidance (ICD-10-PCS; 2024-03-03)
PROC: 4A10X4Z Monitoring of Central Nervous Electrical Activity, External Approach (ICD-10-PCS; 2024-03-04)
DX: A41.9 Sepsis, unspecified organism (principal); J69.0 Pneumonitis due to inhalation of food and vomit; J96.02 Acute respiratory failure with hypercapnia; J96.01 Acute respiratory failure with hypoxia; N17.0 Acute kidney failure with tubular necrosis; I50.23 Acute on chronic systolic (congestive) heart failure; K72.00 Acute and subacute hepatic failure without coma; I21.A1 Myocardial infarction type 2; E87.0 Hyperosmolality and hypernatremia; I42.9 Cardiomyopathy, unspecified; E78.5 Hyperlipidemia, unspecified; E11.9 Type 2 diabetes mellitus without complications; G40.901 Epilepsy, unspecified, not intractable, with status epilepticus; E87.6 Hypokalemia; I11.0 Hypertensive heart disease with heart failure; B18.2 Chronic viral hepatitis C; I46.9 Cardiac arrest, cause unspecified; Z66 Do not resuscitate; I25.2 Old myocardial infarction; Z85.3 Personal history of malignant neoplasm of breast; Z90.13 Acquired absence of bilateral breasts and nipples
CPT/HCPCS: 31500; 36415; 36573; 36600; 71045; 78610; 80048; 80053; 80061; 80076; 80305; 80320; 81003; 82040; 82375; 82550; 82553; 82805; 82962; 83036; 83605; 83735; 83880; 84100; 84132; 84145; 84439; 84443; 84478; 84484; 85025; 85027; 85379; 86705; 86709; 87070; 87340; 93005; 93306; 93970; 94003; 94640; 95816; 99291; A6261; A9512; C1725; C1769; J0330; J0456; J0696; J1650; J1815; J1940; J1953; J2060; J2250; J2470; J2543; J2704; J3475; J3480; J3490; J7030; J7050; J7060; G0480